=== PATIENT | female | born 1970 | race Caucasian/White ===

== ENCOUNTER → 2017-07-18 10:29 | Outpatient (CLI) | payer OTHER, SELFPAY ==
--- NOTE | 2017-07-18 10:32 | US_ITS ---
STUDY: ULTRASOUND OF THE FEMALE PELVIS - COMPLETE REASON FOR EXAM: Female, 46 years old. History of septated left ovarian cyst. LMP: 2012. TECHNIQUE: Transabdominal and Transvaginal TECHNICAL QUALITY: Adequate. COMPARISON: Comparison is made with prior ultrasound dated March 01, [address] scan dated March 04, 2017. FINDINGS: The uterus is anteverted and is in a midline position. The uterus measures 8.0 cm x 5.4 cm x 3.9 cm. There are nabothian cysts of the cervix. The endometrium measures 2.0 mm in thickness, and is hyperechoic. There is no demonstrated endometrial mass. The uterus is of heterogeneous echotexture with fibroid change although no focal fibroid is seen. I.U.D. - The patient does not have an I.U.D. The right ovary is non-visualized. The left ovary is visualized. The left ovary measures 2.6 cm x 2.1 cm x 3.3 cm. There is no left ovarian cyst or ovarian mass. There is no visualized left adnexal mass or complex lesion. There is normal arterial and normal venous vascularity. There is no fluid in the cul-de-sac. The urinary bladder is empty. US/Transvaginal Non- IMPRESSION: Fibroid change of the uterus. The left ovarian cyst has resorbed. Electronically Signed: Enzo Espinosa MD at 14:55 EST Tel [phone], Service support ,
== END ==
PROVIDERS: Family Provider Internal Medicine; PCP Internal Medicine; Visit Provider Obstetrics & Gynecology
DX: R10.814 Left lower quadrant abdominal tenderness (principal)
CPT/HCPCS: 76830; 93976

== ENCOUNTER → 2017-08-08 07:03 | Outpatient (CLI) | payer OTHER, SELFPAY ==
--- NOTE | 2017-08-08 07:06 | CT_ITS ---
STUDY: CT CHEST WITHOUT CONTRAST REASON FOR EXAM: Female, 46 years old. Follow-up for lung nodule. History of breast cancer. RADIATION DOSAGE (If Supplied By Facility): CTDIvol = ( 16.47 ) mGy, DLP = ( 543.21 ) mGycm TECHNIQUE: Transaxial imaging was performed without the administration of intravenous contrast material. Multiplanar coronal and sagittal images were reformatted. Individualized dose optimization techniques were used for this CT. COMPARISON: Comparison is made with prior study dated March 16, 2017. FINDINGS: There is a 5 mm noncalcified nodule in the posterior medial segment of the left lower lobe as seen on axial image #70. This appears slightly smaller. No new nodular density is seen. There is no demonstrated pleural abnormality. Normal heart and pericardium. Normal mediastinum. Normal hilar regions. Normal unenhanced pulmonary arteries. Normal aorta arch and descending thoracic aorta. Normal osseous structures. Fatty infiltration of the liver. CT/Chest without Contrast IMPRESSION: 5 mm noncalcified nodule in the posteromedial segment of the left lower lobe. Electronically Signed: Enzo Espinosa MD at 11:17 EDT Tel [phone], Service support ,
== END ==
PROVIDERS: Family Provider Internal Medicine; PCP Internal Medicine; Visit Provider Internal Medicine Medical Oncology
DX: C50.911 Malignant neoplasm of unspecified site of right female breast (principal); R91.1 Solitary pulmonary nodule
CPT/HCPCS: 71250

== ENCOUNTER → 2017-09-14 07:47 | Outpatient (CLI) | payer OTHER, SELFPAY ==
--- NOTE | 2017-09-14 07:49 | NM_ITS ---
CLINICAL: 47-year-old female with reported history of carcinoma of the breast with current complaint of left hip pain. WHOLE BODY 99m Tc MDP RADIONUCLIDE BONE SCINTIGRAPHY COMPARISON: None available FINDINGS: Following the intravenous administration of 25.0 mCi of 99m Tc MDP, whole body bone images reveal: 1. Increased radiopharmaceutical concentration is identified in the posterior midline sacrum, bilateral hands, knees bilaterally, right and left ankles, the left midfoot, right-left forefoot. 2. The remaining skeletal structures are scintigraphically unremarkable with normal-appearing renal images and urinary bladder activity identified. An increase in uptake is demonstrated in the left maxilla. NM/Bone Scan Whole Body IMPRESSION: 1. The increase in radiopharmaceutical concentration identified in the sacrum, right and left hands, both knee articulations, ankles bilaterally, the left mid foot, right-left forefoot is consistent with the presence of degenerative arthritis. 2. There is no definitive typical scintigraphic evidence of skeletal metastatic disease on the current examination meticulous attention paid to the left hip articulation. Electronically Signed: Emilio Melendrez DO at 10:21 EDT Tel , Service support ,
== END ==
PROVIDERS: Family Provider Internal Medicine; PCP Internal Medicine; Visit Provider Internal Medicine Medical Oncology
DX: M25.552 Pain in left hip (principal); Z85.3 Personal history of malignant neoplasm of breast
CPT/HCPCS: 78306

== ENCOUNTER → 2017-09-23 13:08 | Outpatient (CLI) | payer OTHER, SELFPAY ==
--- NOTE | 2017-09-23 13:26 | BI_ITS ---
MAMMOGRAPHY - BILATERAL DIAGNOSTIC REASON FOR EXAM: Female, 47 years old. Personal history of breast cancer with previous right lumpectomy and radiation therapy PERTINENT HISTORY: Non-contributory. TECHNIQUE: Digital examination. Mediolateral oblique (MLO) and craniocaudad (CC) views of both breasts were obtained, along with 3D tomosynthesis. CAD: CAD was performed on this study. COMPARISON: 08/24/2016 FINDINGS: Breast Composition: There are scattered areas of fibroglandular density. Stable well-defined 1 cm noncalcified nodule in the central left breast. Stable architectural distortion in the right breast from previous surgery. No new suspicious findings. No other significant abnormalities are identified. BI/DIAG MAMM W/CAD, BILAT IMPRESSION: Stable bilateral diagnostic mammogram. ASSESSMENT CATEGORY: BIRADS Category 2: Benign. A letter regarding these results will be sent to the patient by the facility within 30 days. FOLLOW UP RECOMMENDATION: Yearly follow up mammogram recommended. (A) Approximately 10% of breast cancers are not detected by mammography. A normal mammogram should not delay biopsy of a clinically suspicious abnormality. Electronically Signed: Luis Irene MD at 8:17 EDT , Service support ,
== END ==
PROVIDERS: Family Provider Internal Medicine; PCP Internal Medicine
DX: C50.511 Malignant neoplasm of lower-outer quadrant of right female breast (principal)
CPT/HCPCS: 77062; 77066; G0279

== ENCOUNTER → 2018-01-16 07:57 | Outpatient (CLI) | payer OTHER, SELFPAY ==
[2018-01-16 08:45] LABS: Absolute Lymphocyte Count 1.87 X10^3/ul (0.83-4.51); Absolute Neutrophil Count 3.3 X10^3/uL (2.0-7.7); Basophil# 0.04 X10^3/uL; Basophil% 0.7 % (0-1); Eosinophils% 1.8 % (0-5); Hematocrit 40.5 % (37-47); Hemoglobin 13.4 g/dl (12.0-15.0); Lymphocyte # 1.87 X10^3/ul (4.0); Lymphocyte % 33.3 % (19-41); Mean Corp Hgb Conc 33.1 g/gl (32-36); Mean Corpuscular Hgb 31.3 pg (27.0-32.0); Mean Corpuscular Volume 94.6 fL (81-99); Mean Platelet Vol. 9.8 fl (6.2-12.0); Monocyte# 0.33 X10^3/uL; Monocyte% 5.9 % (0-10); Neutrophil # 3.28 X10^3/uL (2.7-7.7); Neutrophil % 58.3 % (47-70); Platelet Count 227 K/mm3 (150-450); RBC Distribution Width CV 11.9 % (11.6-14.6); Red Blood Count 4.28 M/mm3 (4.2-5.4); White Blood Count 5.6 K/mm3 (4.4-11.0)
[2018-01-16 08:50] LABS: POSITIVE COUNT NO; POSITIVE DIFFERENTIAL NO; POSITIVE MORPHOLOGY NO
[2018-01-16 09:15] LABS: Hemoglobin A1c 5.3 % (4.2-6.3)
[2018-01-16 09:28] LABS: BUN 21 mg/dL (7-18); Creatinine, Serum 0.74 mg/dL (0.55-1.02); EST Glomerular Filtration Rate 90 mL/min (>60); Glucose 95 mg/dL (74-106)
[2018-01-16 09:29] LABS: AST(SGOT) 22 U/L (15-37); Alanine Aminotransfer ALT/SGPT 42 U/L (13-56); Albumin, Serum 3.5 g/dL (3.2-5.0); Alkaline Phosphatase 48 U/L (45-117); Anion Gap 14 (5-15); BUN/Creat Ratio 28.5 RATIO (10-20); Calcium,Total 9.1 mg/dL (8.5-10.1); Chloride 105 mmol/L (98-107); Cholesterol 167 mg/dL (200); Est Glom Filt Rate - Afr Amer 109 mL/min (>60); Globulin 3.4 g/dL (2.2-4.2); High Density Lipoprotein 34 mg/dL; Potassium 4.2 mmol/L (3.5-5.1); Protein, Total 6.9 g/dL (6.4-8.2); Sodium Level 142 mmol/L (136-145); Thyroid Stim Hormone (TSH) 4.05 uIU/mL (0.358-3.74); Triglycerides 143 mg/dL; Very Low Density Lipoprotein 29 mg/dL (5-40)
== END ==
PROVIDERS: Family Provider Internal Medicine; PCP Internal Medicine; Visit Provider Obstetrics & Gynecology
DX: N83.202 Unspecified ovarian cyst, left side (principal); E78.5 Hyperlipidemia, unspecified; E55.9 Vitamin D deficiency, unspecified; R73.9 Hyperglycemia, unspecified; R53.81 Other malaise
CPT/HCPCS: 36415; 76830; 76856; 80053; 80061; 82306; 83036; 84443; 85025

== ENCOUNTER → 2018-02-13 06:59 | Outpatient (CLI) | payer OTHER, SELFPAY ==
--- NOTE | 2018-02-13 07:00 | CT_ITS ---
STUDY: CT CHEST WITHOUT CONTRAST REASON FOR EXAM: Female, 47 years old. History of lung nodule. The patient has a history of breast cancer and radiation therapy. RADIATION DOSAGE (If Supplied By Facility): CTDIvol = ( 16.81 ) mGy, DLP = ( 495.67 ) mGycm TECHNIQUE: Transaxial imaging was performed without the administration of intravenous contrast material. Multiplanar coronal and sagittal images were reformatted. Individualized dose optimization techniques were used for this CT. COMPARISON: Comparison is made with prior examination dated August 08, 2017. FINDINGS: 24.1 mm noncalcified nodule in the posterior aspect of the left lower lobe. This has decreased slightly as compared to prior examination. This is seen on axial image #69. No new abnormality is seen. There is no demonstrated pleural abnormality. Normal heart and pericardium. Normal mediastinum. Normal hilar regions. Normal unenhanced pulmonary arteries. Normal aorta arch and descending thoracic aorta. Normal osseous structures. Diffuse fatty infiltration of the liver. CT/Chest without Contrast IMPRESSION: Slightly decreased size of the pulmonary nodule in the posterior medial segment of the left lower lobe. Diffuse fatty infiltration of the liver. Electronically Signed: Enzo Espinosa MD at 13:15 EDT Tel [phone], Service support ,
== END ==
PROVIDERS: Family Provider Internal Medicine; PCP Internal Medicine; Visit Provider Internal Medicine Medical Oncology
DX: R91.1 Solitary pulmonary nodule (principal); Z85.3 Personal history of malignant neoplasm of breast
CPT/HCPCS: 71250

== ENCOUNTER → 2018-03-22 15:46 | Outpatient (CLI) | payer OTHER, SELFPAY ==
[2018-03-25 13:31] LABS: HPV Reflexed? NOT INDICATED
== END ==
PROVIDERS: Visit Provider Obstetrics & Gynecology
DX: Z12.4 Encounter for screening for malignant neoplasm of cervix (principal)
CPT/HCPCS: 88175; G0145

== ENCOUNTER → 2018-07-25 15:35 | Outpatient (CLI) | payer OTHER, SELFPAY ==
--- NOTE | 2018-07-25 15:38 | US_ITS ---
STUDY: ULTRASOUND OF THE FEMALE PELVIS - COMPLETE REASON FOR EXAM: Female, 47 years old. Patient on tamoxifen. Ovarian cysts for follow-up. TECHNIQUE: Transvaginal. TECHNICAL QUALITY: Adequate. COMPARISON: January 16, 2018. July 18, 2017. FINDINGS: The uterus is anteverted and is in a midline position. The uterus measures 9.8 x 5.8 x 3.6 cm. Normal uterine cervix. The endometrium measures 4 mm in thickness, and is hyperechoic. There is no demonstrated endometrial mass. Uterine fibroid measuring 1.2 x 0.9 x 0.8 cm. I.U.D. - The patient does not have an I.U.D. The right ovary is visualized. The right ovary measures 1.8 x 1.6 x 1.0 cm. There is no right ovarian cyst or ovarian mass. There is no visualized right adnexal mass or complex lesion. There is normal arterial and normal venous vascularity. The left ovary is visualized. The left ovary measures 1.8 x 1.6 x 1.2 cm. Simple left ovarian cyst measuring 0.8 x 0.6 x 0.7 cm There is no visualized left adnexal mass or complex lesion. There is normal arterial and normal venous vascularity. There is no fluid in the cul-de-sac. The pre void volume of the bladder was 220 ml. Polycystic ovary disease: No. US/Pelvic (Non ) IMPRESSION: 0.8 cm simple left ovarian cyst compatible with a dominant follicle. 1.2 cm uterine fibroid, not visualized previously. Electronically Signed: Navin Jacome MD at 2:32 EST , Service support ,
--- NOTE | 2018-07-25 16:11 | US_ITS ---
STUDY: ULTRASOUND OF THE FEMALE PELVIS - COMPLETE REASON FOR EXAM: Female, 47 years old. Patient on tamoxifen. Ovarian cysts for follow-up. TECHNIQUE: Transvaginal. TECHNICAL QUALITY: Adequate. COMPARISON: January 16, 2018. July 18, 2017. FINDINGS: The uterus is anteverted and is in a midline position. The uterus measures 9.8 x 5.8 x 3.6 cm. Normal uterine cervix. The endometrium measures 4 mm in thickness, and is hyperechoic. There is no demonstrated endometrial mass. Uterine fibroid measuring 1.2 x 0.9 x 0.8 cm. I.U.D. - The patient does not have an I.U.D. The right ovary is visualized. The right ovary measures 1.8 x 1.6 x 1.0 cm. There is no right ovarian cyst or ovarian mass. There is no visualized right adnexal mass or complex lesion. There is normal arterial and normal venous vascularity. The left ovary is visualized. The left ovary measures 1.8 x 1.6 x 1.2 cm. Simple left ovarian cyst measuring 0.8 x 0.6 x 0.7 cm There is no visualized left adnexal mass or complex lesion. There is normal arterial and normal venous vascularity. There is no fluid in the cul-de-sac. The pre void volume of the bladder was 220 ml. Polycystic ovary disease: No. US/Transvaginal Non- IMPRESSION: 0.8 cm simple left ovarian cyst compatible with a dominant follicle. 1.2 cm uterine fibroid, not visualized previously. Electronically Signed: Navin Jacome MD at 2:32 EST , Service support ,
== END ==
PROVIDERS: Family Provider Internal Medicine; PCP Internal Medicine; Referring Provider Obstetrics & Gynecology; Visit Provider Obstetrics & Gynecology
DX: N83.209 Unspecified ovarian cyst, unspecified side (principal); R10.814 Left lower quadrant abdominal tenderness; Z79.899 Other long term (current) drug therapy
CPT/HCPCS: 76830; 76856; 93976

== ENCOUNTER → 2018-08-14 06:43 | Outpatient (CLI) | payer OTHER, SELFPAY ==
[2018-02-16 14:13] VITALS: BMI 34.0
--- NOTE | 2018-08-14 06:46 | CT_ITS ---
STUDY: CT CHEST WITH CONTRAST REASON FOR EXAM: Female, 47 years old. Lung nodule follow-up RADIATION DOSAGE (If Supplied By Facility): CTDIvol = ( 16.27 ) mGy, DLP = ( 521.51 ) mGycm TECHNIQUE: Transaxial imaging was performed following intravenous administration of Isovue 300 100CC IV. Individualized dose optimization techniques were used for this CT. COMPARISON: 02/13/2018 FINDINGS: Stable appearance of a 5 mm noncalcified nodule in the posterior left lower lobe. It is essentially unchanged compared to 03/04/2017. Another six-month follow-up is recommended to assure stability, if it is stable at that time no further follow-up would be needed. The lungs are otherwise normal. There is no demonstrated pleural abnormality. Normal heart and pericardium. Normal mediastinum. Normal hilar regions. Normal enhanced pulmonary arteries. Normal aorta arch and descending thoracic aorta. Normal osseous structures. Limited cuts through the upper abdomen show diffuse fatty infiltration of liver. CT/Chest WITH Contrast IMPRESSION: Stable appearance of a 5 mm noncalcified nodule in the left lower lobe best seen on axial image 63. Another six-month follow-up is recommended to assure stability. If it is unchanged at that time, no further serial surveillance would be needed No superimposed acute pulmonary process, no organized infiltrate or effusion Diffuse fatty infiltration of the liver Electronically Signed: Luis Irene MD at 19:29 EDT , Service support ,
[2018-08-14 07:05] LABS: CREATININE FINGERSTICK 0.8 mg/dL (0.55-1.02); EGFR FINGERSTICK > 60.0000 mL/min (>60)
== END ==
PROVIDERS: Family Provider Internal Medicine; PCP Internal Medicine; Referring Provider Internal Medicine Medical Oncology; Visit Provider Internal Medicine Medical Oncology
DX: R91.1 Solitary pulmonary nodule (principal); Z85.3 Personal history of malignant neoplasm of breast
CPT/HCPCS: 71260; Q9967; A4216

== ENCOUNTER → 2018-09-25 | Outpatient (CLI) | payer OTHER, SELFPAY ==
[2018-08-16 13:23] VITALS: BMI 34.7
--- NOTE | 2018-09-25 08:35 | BI_ITS ---
MAMMOGRAPHY - BILATERAL SCREENING REASON FOR EXAM: Female, 48 years old. Routine annual screening examination. PERTINENT HISTORY: Personal history of breast cancer. Prior right lumpectomy with radiation and chemotherapy. TECHNIQUE: Digital bilateral breast michael (3D mammographic acquisition) in the CC and MLO projections. 2-D mediolateral oblique (MLO) and craniocaudad (CC) views of both breasts were obtained. CAD: Full Field Digital Mammography with Computer Added Detection was performed. COMPARISON: Comparison is made with prior examination dated August 24, 2016 and September 23, 2017. FINDINGS: Breast Composition: There are scattered areas of fibroglandular density. The patient is status post lumpectomy in the deep mid lateral portion of the right breast in keeping with prior surgical changes. There is a persistent 9.3 mm x 1.3 cm slightly irregular nodule in the upper outer aspect of the left breast. A repeat ultrasound of the nodular density in the left breast is recommended for further evaluation. No other significant abnormalities are identified. There has been no significant change since the prior study. BI/SCREEN MAMM (CAD) W/MICHAEL BILAT IMPRESSION: Status post right lumpectomy with postoperative changes in the right breast as described. Stable nodular density in the left breast as described. A repeat sonogram is recommended. ASSESSMENT CATEGORY: BIRADS Category 0: Incomplete. Need additional imaging evaluation. A letter regarding these results will be sent to the patient by the facility within 30 days. Approximately 10% of breast cancers are not detected by mammography. A normal mammogram should not delay biopsy of a clinically suspicious abnormality. [id number] Electronically Signed: Enzo Espinosa, at 13:05 EDT , Service support ,
--- NOTE | 2018-09-25 13:38 | US_ITS ---
STUDY: ULTRASOUND BREAST - LEFT REASON FOR EXAM: Female, 48 years old. Abnormal screening mammogram. TECHNIQUE: Axial and longitudinal images of the LEFT breast were performed with a high resolution ultrasound transducer. COMPARISON: Comparison is made with prior mammogram done earlier in the day as well as prior ultrasound the left breast dated August 25, 2016. FINDINGS: LEFT Breast: Stable 7 mm x 8 mm x 4 mm hypoechoic nodule at the 2:00 position of the breast at 5 cm from the nipple. This is unchanged. This has the appearance of a lymph node. US/Breast Limited Unilateral IMPRESSION: Stable examination. Routine annual mammographic follow-up is recommended. ASSESSMENT CATEGORY: BIRADS Category 2: Benign. A letter regarding these results will be sent to the patient by the facility within 30 days. Electronically Signed: Enzo Espinosa, at 14:27 EDT , Service support ,
== END | disposition home or self-care (01) ==
PROVIDERS: Family Provider Internal Medicine; PCP Internal Medicine; Referring Provider Internal Medicine Medical Oncology; Visit Provider Internal Medicine Medical Oncology
DX: Z12.31 Encounter for screening mammogram for malignant neoplasm of breast (principal); Z85.3 Personal history of malignant neoplasm of breast
CPT/HCPCS: 76642; 77063; 77067

== ENCOUNTER → 2019-02-19 | Outpatient (CLI) | payer OTHER, SELFPAY ==
[2018-08-16 13:23] VITALS: BMI 34.7
--- NOTE | 2019-02-19 07:20 | CT_ITS ---
STUDY: CT CHEST WITH CONTRAST REASON FOR EXAM: Female, 48 years old. History of breast cancer. Follow-up for noncalcified nodule in the left lower lobe. RADIATION DOSAGE (If Supplied By Facility): CTDIvol = ( 13.99 ) mGy, DLP = ( 458.19 ) mGycm TECHNIQUE: Transaxial imaging was performed following intravenous administration of 100CC IV Isovue 250. Multiplanar coronal and sagittal images were reformatted. Individualized dose optimization techniques were used for this CT. COMPARISON: None. FINDINGS: Stable fat-containing bilateral axillary lymph nodes. There is a 5 mm noncalcified nodule in the posterior aspect of the right lower lobe as seen on axial image #61. This is essentially unchanged. Annual follow-up is recommended. There is no demonstrated pleural abnormality. Normal heart and pericardium. Normal mediastinum. Normal hilar regions. Normal enhanced pulmonary arteries. Normal aorta arch and descending thoracic aorta. There are mild degenerative changes of the thoracic spine. Diffuse fatty infiltration of the liver. Small hiatal hernia. CT/Chest WITH Contrast IMPRESSION: Stable examination. Annual follow-up for the left basilar 5 mm nodule is recommended. Diffuse fatty infiltration of the liver. Electronically Signed: Enzo Espinosa, at 12:59 EDT , Service support ,
== END | disposition home or self-care (01) ==
LOC: CT 07:19
PROVIDERS: Family Provider Internal Medicine; PCP Internal Medicine; Referring Provider Internal Medicine Medical Oncology; Visit Provider Internal Medicine Medical Oncology
DX: R91.1 Solitary pulmonary nodule (principal); Z85.3 Personal history of malignant neoplasm of breast
CPT/HCPCS: 71260; Q9967

== ENCOUNTER 2019-08-09 05:59 | Day surgery (SDC) | payer OTHER, SELFPAY ==
[2019-07-10 11:28] VITALS: BMI 32.3
--- NOTE | 2019-08-09 00:03 | HP.PCM_ITS ---
History and Physical Date of Admission: 08/09/19 HISTORY OF PRESENT ILLNESS 48 year old woman presents for evaluation for TBSE. She has concerns about a lesion on her left upper back that has increased in size over the last several months and has developed irregular borders. She denies fever. She denies trauma. She denies recent infection. She denies bleeding. She presents at this time for further evaluation and treatment. PAST MEDICAL HISTORY Breast cancer Osteoarthritis Tubal PAST SURGICAL HISTORY dilation and curettage hysteroscopy endometrial ablation lumpectomy sinus surgery tubal ligation ALLERGIES No Known Allergies MEDICATIONS Multivit,Calc,Mins/Iron/Folic [Women's Daily Formula Caplet] Calcium Carbonate/Vitamin D3 Tamoxifen Citrate [Nolvadex] FAMILY HISTORY Mother - CVA (cerebral vascular accident), Kidney disease, Hypertension, Clotting disorder, Skin cancer, High cholesterol Father - Skin cancer, Arthritis, High cholesterol, Hypertension Brother - Diabetes, Kidney disease SOCIAL HISTORY Smoking Status: Never smoker alcohol intake: current substance use type: does not use REVIEW OF SYSTEMS General - Denies fever, fatigue, and weight loss. Eyes - Denies cataracts and glaucoma. ENT - Denies nasal congestion and sore throat. Has history of breast cancer. Endocrine - Denies excessive thirst and urination. Skin - Has family history of skin cancer. Has enlarging lesion left upper back. Musculoskeletal - Has joint pain, joint stiffness, and arthritis. Denies weakness of muscles and joints and back pain. Neuro - Denies headaches. Cardiovascular - Denies chest pain, fatigue, and shortness of breath with exertion. Psych - Denies anxiety and depression. Respiratory - Denies chronic cough and shortness of breath. Gastrointestinal - Denies nausea, vomiting, diarrhea, and constipation. Hematologic - Denies abnormal bruising and bleeding. Genitourinary - Denies hematuria and urinary frequency. PHYSICAL EXAMINATION General - Alert and Oriented HEENT - PERRL. EOMI. Throat is clear. No suspicious lesions noted. Neck - Supple and nontender. No cervical adenopathy. No suspicious lesions noted. Lungs - Clear to auscultation. Heart - Regular rate and rhythm. Abdomen - Soft and nondistended. Extremities - FROM. No axillary adenopathy. Radial pulses are palpable. Back - On the left upper back is a lesion that measures 9 mm. Slight pigmentation. Has irregular borders. Slightly raised in configuration. No ulceration. Lesion is nontender. Neuro - CN II-XII grossly intact. Psych - Normal mood and affect. ASSESSMENT 1. 9 mm pigmented lesion left upper back. 2. Family history of skin cancer. PLAN Recommend excision of this pigmented lesion left upper back and send it to Pathology for analysis to rule out carcinoma. If carcinoma is present, then further excision will be done with possible skin flap reconstruction. Surgery will be done under local anesthesia and IV sedation on an outpatient basis. Patient was informed of the risks and complications of the procedure including alternatives to surgery. These were discussed with the patient personally. Patient voices understanding and wishes to proceed. Some of the risks and complications were included in a form from the [employer] [employer].
[2019-08-09 06:46] VITALS: BP 118/80; PULSE 89; RESP 14; TEMP 36.6; O2SAT 98; BMI 33.8
[2019-08-09] MEDS: Lactated Ringers 1,000 ML 100 ML IV (07:17)
--- NOTE | 2019-08-09 07:30 | LES_PTH ---
PATIENT: SARKIS ARREGAA LOC: [facility] [place] U#:[id number] AGE/SX: 48/F ROOM: RE08/09/[address]: Dr. Mathew Ferguson MD : 1970 BED: DIS: 08/09/2019 SPEC #: [id number] RECD: 08/09/19 10:23 STATUS: SILAS MASOOD #: [id number] ZAMZAM: 08/09/19 07:[address]: Mathew Ferguson DEPT: SURGICAL PATHOLOGY RECD BY: Rigo Pichardo ENTERED: 08/09/19 10:31 SP TYPE: Lesion OTHR DR: Dr. Rich Morrison MD Tissues: Skin of back, NOS Procedures: Surgery Specimen Level IV HEADER OPERATION: Excision pigmented lesion upper back PRE-OP DIAGNOSIS: 9 mm pigmented lesion left upper back TISSUE SUBMITTED: Pigmented lesion upper back, suture at 12 o'clock MICROSCOPIC DIAGNOSIS Lesion upper back, excision: Pigmented seborrheic keratosis. AM:keli 08/10/19 COMMENT Case has been reviewed in consultation with Dr. Fischer who concurs with the above diagnosis. IDC:SJ MICROSCOPIC DESCRIPTION Slides are reviewed. GROSS DESCRIPTION Received in fixative is one container labeled with the patient's name and designated skin of upper back. The specimen consists of an ellipse of light patel excised skin measuring 2.8 x 1.1 cm and a depth of excision measuring 0.6 cm. The cutaneous surface displays an irregularly elevated light patel lesion measuring 1 cm in greatest dimension. One tip of the specimen contains a suture. This tip and corresponding half is inked in yellow ink. The opposite half of the specimen is inked in black ink. The specimen is serially sectioned along its narrow access and totally submitted in two cassettes. / AM:keli 08/09/19 TC:5 CPT: 19899
[2019-08-09] MEDS: Cefazolin 2 GM in 0.9% Normal Saline 100 ML IV (07:58)
[2019-08-09] MEDS: Mupirocin Ointment 22gm Tube 1 APPLIC (08:21)
--- NOTE | 2019-08-09 08:32 | OP.PCM_ITS ---
Report of Operation Date of Procedure: 08/09/19 Pre-Operative Diagnosis: 1. 9 mm pigmented lesion left upper back. 2. Family history of skin cancer. Post-Operative Diagnosis: Same. Surgery/Procedure Performed:: Excision 9 mm pigmented lesion left upper back with 3 cm layered closure. Description of Surgical Findings:: 48 year old woman presents for evaluation for TBSE. She has concerns about a lesion on her left upper back that has increased in size over the last several months and has developed irregular borders. She denies fever. She denies trauma. She denies recent infection. She denies bleeding. Patient was informed of the risks and complications of the procedure including alternatives to surgery. These were discussed with the patient personally. Patient voices understanding and wishes to proceed. Some of the risks and complications were included in a form from the [employer]. math and physics instructor: None Type of Anesthesia:: Local MAC - xylocaine with epinephrine and IV sedation. Specimen's removed: Pigmented lesion left upper back to Pathology. Drains: None. Estimated Blood Loss (mL): 5 ml. Description of Procedure: Patient was taken to OR in supine position and was given IV sedation. She was placed in the prone position. The left upper back was prepped and draped in the usual fashion. SCD's were placed for DVT prophylaxis. Perioperative antibiotics were given intravenously. The lesion left upper back was infiltrated with xylocaine and epinephrine. After waiting 5 minutes for the anesthetic to take effect, I excised the lesion in an oblique elliptical way down into the subcutaneous tissue. I excised the lesion with a 1 mm margin in all directions thus making it a 1.1 cm lesion and a 3 cm layered closure. A suture was marked at 12 oclock position for pathology orientation. The lesion was sent to Pathology for analysis to rule out carcinoma. Hemostasis was obtained with electrocautery. The wound was closed primarily in a layered fashion with 4-0 Prolene interrupted sutures for deep dermis and subcutaneous tissue. The skin was approximated with 4-0 Prolene simple interrupted sutures. Antibiotic ointment was applied to the suture line followed by a 2x2 gauze and an Op-Site dressing. Patient tolerated the procedure well and was sent to PACU in satisfactory condition. Patient will be sent home on antibiotics and pain medication. She will keep her head elevated and be on a lifting restriction during the initial postoperative period. Patient will followup in a week for a wound check and for discussion of the pathology report and for removal of the sutures. Grafts/Implants Used: None. - Complications None. - Admit VTE Documentation VTE Present on Admission: No VTE Mechan Device Prophylaxis: SCD's VTE Pharm Prophylaxis ordered?: No Surgery Charges CPT - 09241 ICD-10 - D49.2, Z80.8 28024 D49.2, Z80.8
[2019-08-09 08:35] VITALS: BP 118/80; BP 122/64; PULSE 97; RESP 16; TEMP 36.5; O2SAT 98
[2019-08-09 08:40] VITALS: BP 111/78; BP 118/80; PULSE 71; RESP 16; O2SAT 98
--- NOTE | 2019-08-09 08:43 | PCM.DC ---
You will use the following diet at home:: No restrictions Discharge Activity: May not drive while taking narcotic pain medications., May Shower - in two days., - - keep head elevated. no heavy lifting. Return to work on:: 08/20/19 - tentative May shower in (days): 2 May resume sexual activity in: No Restrictions Weight Bearing Status: Weight bearing as tolerated Lifting Restrictions: 20 lbs. Keep extremity elevated above heart level: - - elevate head. Call your doctor if your incision/area has: Continuous Slow Oozing, Sudden Increased Bleeding, Increased Pain/ Swelling, Increased Redness, Foul Smelling Discharge, Swelling at the incision site Call your doctor if you observe: Fever of 101 or Higher, Coldness, Increased Pain, Shortness of breath, Chest pain, Calf discomfort, Uncontrolled pain Suture Line Care: - - after operative dressing removed in two days, apply antibiotic ointment to suture line daily. Remove Dressing in (days):: 2 Cleanse incision/area with: - - may get incision wet in the shower in two days. Allergies/Adverse Reactions: Allergies No Known Allergies Allergy (Verified 08/07/19 11:53) Medications to take at Discharge Multivit,Calc,Mins/Iron/Folic [Women's Daily Formula Caplet] 1 each PO DAILY 12/31/15 Calcium Carbonate/Vitamin D3 [Calcium 600-Vit D3 400 Tablet] 1 each PO BID #60 tablet 09/14/16 Tamoxifen Citrate [Nolvadex] 20 mg PO DAILY 90 Days #90 tab 07/02/19 Cefadroxil [Duricef] 500 mg PO BID #8 cap 08/09/19 Oxycodone HCl/Acetaminophen [Percocet 5/325] 1 tablet PO Q6H PRN PRN 5 Days #20 tablet 08/09/19 The following prescriptions were given: Cefadroxil [Duricef] 500 mg PO BID #8 cap Transmission Status: Pending to [facility]/pharmacy #[id number] Oxycodone HCl/Acetaminophen [Percocet 5/325] 1 tablet PO Q6H PRN PRN 5 Days #20 tablet PRN Reason: Pain Score 4-5/10 Transmission Status: Received by [facility]/pharmacy #[id number] Primary Care Physician: Rich Morrison [Primary Care Provider] - Test Results: Test results from this visit will be discussed in further detail at your follow-up appointment, if applicable. Please Follow Up With: Mathew Ferguson MD When: one week. call [phone] for appt. Proposed Discharge Date: 08/09/19
[2019-08-09 08:45] VITALS: BP 107/79; BP 118/80; PULSE 81; RESP 16; O2SAT 95
[2019-08-09 08:50] VITALS: BP 109/72; BP 118/80; PULSE 80; RESP 16; TEMP 36.4; O2SAT 98
[2019-08-09 09:23] VITALS: BP 118/80
== END 2019-08-09 09:28 | disposition home or self-care (01) ==
LOC: SDC 05:59 → AC 06:00
PROVIDERS: PCP Internal Medicine; Referring Provider Surgery; Visit Provider Surgery
PROC: (CPT 11401; principal; 2019-08-09 07:20)
DX: L82.1 Other seborrheic keratosis (principal); M19.90 Unspecified osteoarthritis, unspecified site; Z85.3 Personal history of malignant neoplasm of breast
CPT/HCPCS: 11401; 12032; 88305; J7120

== ENCOUNTER → 2019-10-08 | Outpatient (CLI) | payer OTHER, SELFPAY ==
[2019-08-17 09:36] VITALS: BMI 33.8
--- NOTE | 2019-10-08 14:59 | BI_ITS ---
MAMMOGRAPHY - BILATERAL SCREENING REASON FOR EXAM: Female, 49 years old. Routine annual screening examination. PERTINENT HISTORY: Personal history of breast cancer. History of prior right lumpectomy with radiation and chemotherapy. TECHNIQUE: Digital bilateral breast michael (3D mammographic acquisition) in the CC and MLO projections. 2-D mediolateral oblique (MLO) and craniocaudad (CC) views of both breasts were obtained. CAD: Full Field Digital Mammography with Computer Added Detection was performed. COMPARISON: Comparison is made with prior examination dated September 25, 2018 and September 24, 2007. FINDINGS: Breast Composition: There are scattered areas of fibroglandular density. The patient is status post right lumpectomy in the deep mid lateral portion of the right breast. Mild residual postoperative changes are seen. There is a 1.1 cm x 0.8 cm nodular density in the upper outer aspect of the left breast. This is unchanged. No clustered microcalcification is seen. No other significant abnormalities are identified. There has been no significant change since the prior study. BI/SCREEN MAMM (CAD) W/MICHAEL BILAT IMPRESSION: Stable bilateral screening mammogram. Yearly follow-up mammogram recommended. (A) ASSESSMENT CATEGORY: BIRADS Category 2: Benign. A letter regarding these results will be sent to the patient by the facility within 30 days. Approximately 10% of breast cancers are not detected by mammography. A normal mammogram should not delay biopsy of a clinically suspicious abnormality. [id number] Electronically Signed: Enzo Espinosa, at 8:16 EDT , Service support ,
== END | disposition home or self-care (01) ==
LOC: OPBI 14:59
PROVIDERS: PCP Internal Medicine; Referring Provider Internal Medicine Medical Oncology; Visit Provider Internal Medicine Medical Oncology
DX: Z12.31 Encounter for screening mammogram for malignant neoplasm of breast (principal); C50.919 Malignant neoplasm of unspecified site of unspecified female breast
CPT/HCPCS: 77063; 77067

== ENCOUNTER → 2020-03-05 | Outpatient (CLI) | payer OTHER, SELFPAY ==
[2019-10-11 14:57] VITALS: BMI 33.7
--- NOTE | 2020-03-05 06:51 | CT_ITS ---
STUDY: CT CHEST WITH CONTRAST REASON FOR EXAM: Female, 49 years old. F/U LUNG NODULE. HISTORY OF RIGHT BREAST CANCER 2016 WITH LUMPECTOMY,CHEMO AND RADIATION RADIATION DOSAGE (If Supplied By Facility): CTDIvol = ( 11.22 ) mGy, DLP = ( 385.54 ) mGycm TECHNIQUE: Transaxial imaging was performed following intravenous administration of IV 100mL Isovue-370. Multiplanar coronal and sagittal images were reformatted. Individualized dose optimization techniques were used for this CT. COMPARISON: 02/19/2019, 08/08/2017 FINDINGS: Similar operative changes of the deep right breast. 5 mm smoothly marginated noncalcified nodule in the left lower lobe on image 65 is stable since 08/08/2017. There is no demonstrated pleural abnormality. Normal heart and pericardium. Normal mediastinum. Normal hilar regions. Normal enhanced pulmonary arteries. Normal aorta arch and descending thoracic aorta. There are multi-level degenerative changes of the thoracic spine. Diminished density throughout the liver compatible with hepatic steatosis. CT/Chest WITH Contrast IMPRESSION: 1. 5 mm nodule in the left lower lobe has been stable for more than 2 years, considered benign. No specific imaging follow-up recommendations according to [employer] standards. Electronically Signed: Torin Pineda MD ([place]) at 9:57 EDT , Service support ,
[2020-03-05 07:01] LABS: CREATININE FINGERSTICK 0.9 mg/dL (0.55-1.02)
== END | disposition home or self-care (01) ==
LOC: CT 06:51
PROVIDERS: PCP Internal Medicine; Referring Provider Internal Medicine Medical Oncology; Visit Provider Internal Medicine Medical Oncology
DX: R91.1 Solitary pulmonary nodule (principal); C50.911 Malignant neoplasm of unspecified site of right female breast
CPT/HCPCS: 71260; Q9967

== ENCOUNTER → 2020-04-03 06:34 | Outpatient (CLI) | payer OTHER, SELFPAY ==
[2019-10-11 14:57] VITALS: BMI 33.7
[2020-04-03 07:03] LABS: Absolute Lymphocyte Count 2.12 X10^3/uL (0.83-4.51); Absolute Neutrophil Count 3.4 X10^3/uL (2.0-7.7); Basophil# 0.06 X10^3/uL; Eosinophil# 0.14 X10^3/uL; Eosinophils% 2.2 % (0-5); Hematocrit 41.6 % (37-47); Hemoglobin 13.8 g/dL (12.0-15.0); Lymphocyte # 2.12 X10^3/ul (4.0); Lymphocyte % 33.8 % (19-41); Mean Corp Hgb Conc 33.2 g/dL (32-36); Mean Corpuscular Hgb 31.1 pg (27.0-32.0); Mean Corpuscular Volume 93.7 fL (81-99); Mean Platelet Vol. 9.9 fl (6.2-12.0); NRBC Flagged by Analyzer 0 % (0-5); Neutrophil # 3.44 X10^3/uL (2.7-7.7); Neutrophil % 54.7 % (47-70); Platelet Count 259 K/mm3 (150-450); RBC Distribution Width CV 11.4 % (11.6-14.6); RBC Distribution Width SD 38.7 fl (35.1-43.9); Red Blood Count 4.44 M/mm3 (4.2-5.4); White Blood Count 6.3 K/mm3 (4.4-11.0)
[2020-04-03 07:32] LABS: AST(SGOT) 22 U/L (15-37); Alanine Aminotransfer ALT/SGPT 41 U/L (13-56); Albumin, Serum 3.5 g/dL (3.2-5.0); Alkaline Phosphatase 56 U/L (45-117); Anion Gap 5 (5-15); BUN 16 mg/dL (7-18); BUN/Creat Ratio 22.5 RATIO (10-20); Calcium,Total 8.4 mg/dL (8.5-10.1); Chloride 113 mmol/L (98-107); Creatinine, Serum 0.71 mg/dL (0.55-1.02); EST Glomerular Filtration Rate 93 mL/min (>60); Est Glom Filt Rate - Afr Amer 113 mL/min (>60); Globulin 3.5 g/dL (2.2-4.2); Glucose 105 mg/dL (74-106); LDH 171 U/L (84-246); Potassium 4.2 mmol/L (3.5-5.1); Sodium Level 141 mmol/L (136-145)
[2020-04-03 14:39] LABS: Xtra Tube EP Lab EXTRA TUBE
== END ==
PROVIDERS: PCP Internal Medicine; Referring Provider Internal Medicine Medical Oncology; Visit Provider Internal Medicine Medical Oncology
DX: C50.911 Malignant neoplasm of unspecified site of right female breast (principal)
CPT/HCPCS: 36415; 80053; 83615; 85025

== ENCOUNTER → 2020-10-10 15:51 | Outpatient (CLI) | payer OTHER, SELFPAY ==
[2019-10-11 14:57] VITALS: BMI 33.7
[2020-10-01 15:31] VITALS: BMI 34.4
--- NOTE | 2020-10-10 15:53 | BI_ITS ---
MAMMOGRAPHY - BILATERAL SCREENING 3-D TOMOSYNTHESIS REASON FOR EXAM: Female, 50 years old. SCREENING PERTINENT HISTORY: Personal history of breast cancer with prior right lumpectomy and radiation and chemotherapy. TECHNIQUE: 2-D mammograms and 3-D Tomosynthesis of the breast (s) were performed. CAD was performed. COMPARISON: 10/08/2019 FINDINGS: The breast composition is composed of scattered fibroglandular density. Scattered benign calcifications are seen. No dense spiculated masses or suspicious microcalcifications are identified. Stable architectural distortion in the right breast from previous surgery. Stable well-defined nodular density in the upper-outer quadrant of left breast.. There is no skin thickening or retraction. There has been no significant change since the prior study. BI/SCRN MAMM (CAD)W/MICHAEL BILAT IMPRESSION: No mammographic signs of malignancy. Routine yearly mammograms recommended. ASSESSMENT CATEGORY: BIRADS Category 2: Benign. A letter regarding these results will be sent to the patient by the facility within 30 days. FOLLOW UP RECOMMENDATION: Yearly follow up mammogram recommended. (A) Approximately 10% of breast cancers are not detected by mammography. A normal mammogram should not delay biopsy of a clinically suspicious abnormality. Electronically Signed: Luis Irene MD at 9:12 EDT , Service support ,
== END ==
PROVIDERS: PCP Internal Medicine
DX: Z12.31 Encounter for screening mammogram for malignant neoplasm of breast (principal)
CPT/HCPCS: 77063; 77067

== ENCOUNTER → 2020-10-21 09:25 | Outpatient (CLI) | payer OTHER, SELFPAY ==
[2020-10-01 15:31] VITALS: BMI 34.4
== END ==
PROVIDERS: PCP Internal Medicine; Referring Provider Surgery; Visit Provider Surgery
DX: Z03.818 Encounter for observation for suspected exposure to other biological agents ruled out (principal)
CPT/HCPCS: 87635; U0005; U0003

== ENCOUNTER → 2021-04-14 14:08 | Outpatient (CLI) | payer OTHER, SELFPAY ==
--- NOTE | 2021-04-14 14:15 | RAD_ITS ---
STUDY: X-RAY - PELVIS AND BILATERAL HIPS REASON FOR EXAM: Female, 50 years old. LEFT HIP PAIN -- NO TECHNIQUE: AP view of the pelvis.? 2 views of the right hip, and 2 views of the left hip were obtained. COMPARISON: None. FINDINGS: There is a non-specific bowel gas pattern. There is evidence of a tubal ligation clips in the pelvis. Normal bilateral iliac wings, sacroiliac joints and visualized sacrum. Normal bilateral superior and inferior pubic rami. Normal pubic symphysis. Normal bilateral ischial tuberosities. Normal visualized right femoral head. Normal right acetabulum. Normal right hip joint. Normal visualized left femoral head. Normal left acetabulum. Normal left hip joint. RAD/Hips B/L min 2 views w/ Pelvis IMPRESSION: Normal x-ray examination of the pelvis and bilateral hips. Electronically Signed: Enzo Espinosa MD at 15:13 EST , Service support ,
== END ==
PROVIDERS: PCP Internal Medicine; Referring Provider Internal Medicine Medical Oncology; Visit Provider Internal Medicine Medical Oncology
DX: M25.552 Pain in left hip (principal)
CPT/HCPCS: 73521

== ENCOUNTER → 2021-05-13 08:09 | Outpatient (CLI) | payer OTHER, SELFPAY ==
--- NOTE | 2021-05-13 08:11 | NM_ITS ---
CLINICAL: 50-year-old female with history of carcinoma of the breast. WHOLE BODY 99m Tc MDP RADIONUCLIDE BONE SCINTIGRAPHY COMPARISON: Previous whole body bone scintigraphy study dated 09/14/2017 FINDINGS: Following the intravenous administration of 26.0 mCi of 99m Tc MDP, whole body bone images reveal: 1. Increased radiopharmaceutical concentration is currently identified in the sternoclavicular compartments of both shoulders, right elbow, visualized right wrist, both knees, sacrum posteriorly, bilateral ankles, right-left midfoot, the first metatarsal-phalangeal articulation of the right forefoot. 2. The remaining skeletal structures are scintigraphically unremarkable with normal-appearing renal images and urinary bladder activity identified. Facilitated uptake is noted in the bilateral maxilla and interorbital aspect of the calvarium most consistent with periostitis. NM/Bone Scan Whole Body IMPRESSION: 1. The increase in radiopharmaceutical concentration identified in the bilateral shoulders, right elbow, right wrist, knees bilaterally, the sacrum, both ankles, right and left midfoot, the right forefoot is most consistent with degenerative arthritis. 2. Overall compared to the previous whole body bone scintigraphy study dated 09/14/2017, there is no significant interval change. No current typical scintigraphic evidence of diffuse axial skeletal metastatic disease is delineated on the current examination. Electronically Signed: Emilio Melendrez DO at 22:38 EST Tel , Service support ,
== END ==
PROVIDERS: PCP Internal Medicine; Referring Provider Nurse Practitioner Family; Visit Provider Nurse Practitioner Family
DX: M25.552 Pain in left hip (principal); Z85.3 Personal history of malignant neoplasm of breast
CPT/HCPCS: 78306; A9503

== ENCOUNTER → 2021-05-27 12:41 | Outpatient (CLI) | payer OTHER, SELFPAY ==
--- NOTE | 2021-05-27 12:43 | MRI_ITS ---
EXAM: MR PELVIS WITHOUT AND WITH INTRAVENOUS CONTRAST CLINICAL INDICATION: PAIN L HIP -- BILATERAL HIPS AND PELVIS breast cancer TECHNIQUE: Multiplanar and multisequence MR images of the pelvis without and with intravenous contrast. This report was created using [employer] report miCab technology. CONTRAST: IV 16ml Dotarem COMPARISON: None. FINDINGS: APPENDIX: No evidence of acute appendicitis. INTRAPERITONEAL SPACE: Unremarkable. No ascites or other fluid collection. BLADDER: Unremarkable. REPRODUCTIVE: The uterus is normal. BONES/JOINTS: Unremarkable. No suspicious lytic or blastic abnormality. SOFT TISSUES: There is an umbilical hernia containing fat. There is no bowel involvement. There is no incarceration. There is no findings suggesting that this is causing a bowel obstruction. LYMPH NODES: Unremarkable. No enlarged lymph nodes. MRI/Pelvis W/WO Contrast IMPRESSION: No acute findings in the pelvis. Electronically Signed: Noman Soler MD at 21:39 EST , Service support ,
== END ==
PROVIDERS: PCP Internal Medicine; Visit Provider Internal Medicine Medical Oncology
DX: M25.552 Pain in left hip (principal); Z85.3 Personal history of malignant neoplasm of breast
CPT/HCPCS: 72197; A9575

== ENCOUNTER → 2021-10-13 | Outpatient (CLI) | payer BC, SELFPAY ==
--- NOTE | 2021-10-13 13:20 | BI_ITS ---
MAMMOGRAPHY - BILATERAL SCREENING REASON FOR EXAM: Female, 51 years old. Routine annual screening examination. PERTINENT HISTORY: Personal history of breast cancer. Prior right lumpectomy with chemotherapy and radiation therapy. TECHNIQUE: Digital bilateral breast michael (3D mammographic acquisition) in the CC and MLO projections. 2-D mediolateral oblique (MLO) and craniocaudad (CC) views of both breasts were obtained. CAD: Full Field Digital Mammography with Computer Added Detection was performed. COMPARISON: Comparison is made with a prior examination dated 10/10/2020 and 10/08/2019. FINDINGS: Breast Composition: There are scattered areas of fibroglandular density. Stable 1.1 cm x 0.6 cm nodular density in the upper deep lateral portion of the left breast. The patient is status post lumpectomy with mild postresidual scarring in the deep central lateral aspect of the right breast. No other significant abnormalities are identified. There has been no significant change since the prior study. BI/SCRN MAMM (CAD)W/MICHAEL BILAT IMPRESSION: Stable bilateral screening mammogram. Yearly follow-up mammogram recommended. (A) ASSESSMENT CATEGORY: BIRADS Category 2: Benign. A letter regarding these results will be sent to the patient by the facility within 30 days. Approximately 10% of breast cancers are not detected by mammography. A normal mammogram should not delay biopsy of a clinically suspicious abnormality. [id number] Electronically Signed: Enzo Espinosa MD at 14:31 EDT ,
== END | disposition home or self-care (01) ==
PROVIDERS: PCP Internal Medicine; Visit Provider Internal Medicine Medical Oncology
DX: Z12.31 Encounter for screening mammogram for malignant neoplasm of breast (principal); Z85.3 Personal history of malignant neoplasm of breast
CPT/HCPCS: 77063; 77067

== ENCOUNTER → 2022-02-02 | Outpatient (CLI) | payer BC, SELFPAY ==
--- NOTE | 2022-02-02 10:27 | MRI_ITS ---
STUDY: BILATERAL BREAST MR WITHOUT AND WITH CONTRAST REASON FOR EXAM: Female, 51 years old. Right breast pain. TECHNIQUE: Multi-sequence multi-echo imaging of both breasts was performed with a dedicated breast coil. T1-weighted and T2-weighted images were performed before the administration of contrast. T1-weighted images were also performed after the intravenous administration of 15ml of Clariscan contrast without complications. COMPARISON: Mammograms dated 10/13/2021, 10/10/2020 and 10/08/2019. FINDINGS: RIGHT BREAST: The breast tissue is fatty with no background enhancement. There are no abnormal enhancing masses or areas of non-mass enhancement in the right breast. LEFT BREAST: The breast tissue is fatty with minimal background enhancement with largest focus being 5 mm in diameter. There are no abnormal enhancing masses or areas of non-mass enhancement in the left breast. There are no enlarged or abnormal lymph nodes. There is no abnormality in the visualized regions of the chest or liver. MRI/Breast Bilateral W/O and W IMPRESSION: No significant abnormality on the breast MRI with contrast. Yearly screening mammogram recommended. CATEGORY: BIRADS Category 2: Benign. A letter regarding these results will be sent to the patient by the facility within 30 days. Electronically Signed: Kuldeep Ribeiro, at 9:25 EDT ,
== END | disposition home or self-care (01) ==
LOC: MRI 10:27
PROVIDERS: PCP Internal Medicine; Visit Provider Surgery
DX: N64.4 Mastodynia (principal); Z85.3 Personal history of malignant neoplasm of breast
CPT/HCPCS: 77049; A9575; A4216; C8908

== ENCOUNTER 2022-02-05 05:28 | Day surgery (SDC) | payer BC, SELFPAY ==
[2022-02-05] MEDS: Lactated Ringers 1,000 ML 15 ML IV (05:40)
[2022-02-05 05:55] VITALS: BP 130/85; PULSE 80; RESP 20; TEMP 36.4; O2SAT 99; BMI 32.8
--- NOTE | 2022-02-05 06:28 | PCM.HP.STD ---
[facility] - General General Date of Admission: 02/05/22 Date of Service: 02/05/22 Chief Complaint: Screening colonoscopy HPI Narrative SARKIS ARREAGA, is a 51-year-old woman with past medical history of right-sided breast cancer stage I estrogen receptor positive on tamoxifen therapy who presents for screening colonoscopy. She does not have any abdominal pain. Not have any nausea. Have any chest pain or shortness of breath. Not have any numbness. Overall she is in good state of health. [facility] Medical History (Updated 02/04/22 @ 09:50 by Michelle Ortega) Alcohol use Arthritis Back pain Breast cancer History of lobular carcinoma of breast Non-smoker Osteoarthritis Other seborrheic keratosis Tubal Home Medications multivit-iron 18 mg-folic acid 400 mcg-calcium 500 mg-minerals tablet (Women's Daily Formula) 1 ea PO DAILY 12/31/15 [History Last Taken 03/29/17] tamoxifen 20 mg tablet 20 mg PO DAILY 02/04/22 [History Last Taken Unknown] Allergy/AdvReac Type Severity Reaction Status Date / Time No Known Allergies Allergy Verified 02/05/22 05:55 Family History Mother CVA (cerebral vascular accident) Kidney disease Hypertension Clotting disorder Skin cancer High cholesterol Father Skin cancer Arthritis High cholesterol Hypertension Brother Diabetes Kidney disease Surgical History (Updated 02/04/22 @ 09:50 by Michelle Ortega) History of dilation and curettage History of endometrial ablation History of excision of lesion History of excision of lesion History of hysteroscopy History of lumpectomy History of sinus surgery History of tubal ligation Social History Smoking Status: Never smoker alcohol intake: current details: SOCIAL substance use type: does not use additional social history: DOES NOT USE ASPIRIN DOES USE IBUPROFEN NEEDED ROS Review of Systems ROS Unobtainable: other Constitutional Constitutional: Denies fatigue, fever(s), poor appetite, weight gain or weight loss ENT HEENT: Denies mouth lesions Cardiovascular Cardiovascular: Denies abdominal bloating, abdominal edema or abdominal pain Respiratory/Chest Respiratory/Chest: Denies change in mental status, change in phlegm color, chest congestion or chest tightness Gastrointestinal Gastrointestinal: Denies belching, bloating, change in bowel habits, change in stool character, chewing difficulty, coffee ground emesis, constipation, cramping, diarrhea, dyspepsia, dysphagia, early satiety, excessive flatus, fecal incontinence, heartburn, hematemesis, hematochezia, hemorrhoids, loose stools, melena, nausea, odynophagia, rectal bleeding, tenesmus, vomiting or weight changes Genitourinary Genitourinary: Denies abdominal discomfort, burning urination or itching Musculoskeletal Musculoskeletal: Reports as per HPI; Denies muscle weakness or myalgias Integumentary Integumentary: Denies jaundice Neurologic Neurologic: Denies lack of coordination or weakness Psychiatric Psychiatric: Denies confusion, depression, memory loss, mood swings, paranoia or suicidal ideation Endocrine Endocrinology: Denies systems reviewed and no addt'l complaints, except as documented Hematologic/Lymphatic Hematologic/Lymphatic: Denies anemia, easy bleeding, easy bruising or lymphadenopathy Allergic/Immunologic Allergic/Immunologic: Denies systems reviewed and no addt'l complaints, except as documented Vital Signs Vital Signs Vital Signs: 02/05/22 05:55 02/05/22 05:55 Temperature 97.5 F L Temperature Source Temporal Pulse Rate 80 Respiratory Rate 20 H Respiratory Pattern Normal Blood Pressure 130/85 H Blood Pressure Mean 100 Blood Pressure Source Monitor Blood Pressure Position Semi-Fowlers Blood Pressure Location Left Arm Pulse Ox 99 Oxygen Delivery Method Room Air Weight Weight: 173 lb 15.115 oz Body Mass Index (BMI) 32.8 Physical Exam Const alert, oriented x3 and no apparent distress General Appearance: cooperative HEENT normocephalic, external ears normal and external nose normal Eyes PERRL, conjunctivae normal and no scleral icterus Neck supple Lymph Lymphatic: no lymphadenopathy noted Chest Chest Narrative: Breast deferred, to be done by her [facility]TER Resp normal respiratory effort and clear to auscultation bilaterally Cardio regular rate, regular rhythm, S1 normal heart sound and S2 normal heart sound GI normal to inspection, nondistended, normoactive bowel sounds Back/Spine no CVA tenderness and thoracic and lumbar spine normal to inspection Extremity normal to inspection Neuro oriented x3, CN's II-XII intact bilaterally, moves all extremities and no focal motor deficits Assessment & Plan Assessment/Plan (1) Encounter for screening for malignant neoplasm of colon: PLAN: She will undergo screening colonoscopy. She was explained alternatives, risk, benefits including not withstanding bleeding, infection, sepsis, perforation, need for urgent . She will have an ASA of 1.
[2022-02-05 06:55] VITALS: BP 106/68; BP 130/85; PULSE 73; RESP 18; TEMP 36.1; O2SAT 97
--- NOTE | 2022-02-05 06:55 | OP.COLON_ITS ---
Patient Name: Morenita Hutchins Procedure Date: 02/05/2022 6:15 AM Date of : 1970 Age: 51 Procedure: Colonoscopy Indications: Screening for colorectal malignant neoplasm Providers: Vikash Phillips DO Referring MD: Rich Morrison Medicines: Monitored Anesthesia Care Patient Profile: This is a 51 year old female. Refer to note in patient chart for documentation of history and physical. Last Colonoscopy: none. The patient's first colonoscopy is today. Complications: No immediate complications. Procedure: Pre-Anesthesia Assessment: - Prior to the procedure, a History and Physical was performed, and patient medications and allergies were reviewed. The risks and benefits of the procedure and the sedation options and risks were discussed with the patient. All questions were answered and informed consent was obtained. Patient identification and proposed procedure were verified by the physician in the pre-procedure area. Mental Status Examination: alert and oriented. Airway Examination: normal oropharyngeal airway and neck mobility. Respiratory Examination: clear to auscultation. CV Examination: normal. Prophylactic Antibiotics: The patient does not require prophylactic antibiotics. Prior Anticoagulants: The patient has taken no previous anticoagulant or antiplatelet agents. ASA Grade Assessment: II - A patient with mild systemic disease. After reviewing the risks and benefits, the patient was deemed in satisfactory condition to undergo the procedure. The anesthesia plan was to use monitored anesthesia care (MAC). Immediately prior to administration of medications, the patient was re-assessed for adequacy to receive sedatives. The heart rate, respiratory rate, oxygen saturations, blood pressure, adequacy of pulmonary ventilation, and response to care were monitored throughout the procedure. The physical status of the patient was re-assessed after the procedure. After I obtained informed consent, the scope was passed under direct vision. Throughout the procedure, the patient's blood pressure, pulse, and oxygen saturations were monitored continuously. The colonoscope was introduced through the anus and advanced to the cecum, identified by appendiceal orifice and ileocecal valve. The colonoscopy was performed without difficulty. The patient tolerated the procedure well. The quality of the bowel preparation was good. Scope In: 6:35:42 AM Scope Withdrawal Time 0 hours 10 minutes 55 seconds Scope Out: 6:49:05 AM Total Procedure Duration Time 0 hours 13 minutes 23 seconds Findings: Hemorrhoids were found on perianal exam. The entire examined colon appeared normal on direct and retroflexion views. Impression: - Hemorrhoids found on perianal exam. - The entire examined colon is normal on direct and retroflexion views. - No specimens collected. Recommendation: - Discharge patient to home. - Resume previous diet. - Continue present medications. - Repeat colonoscopy in 10 years for screening purposes. Procedure Code(s): --- Professional --- G0121, Colorectal cancer screening; colonoscopy on individual not meeting criteria for high risk CPT copyright 2017 [employer]. All rights reserved. The codes documented in this report are preliminary and upon distance learning coordinator review may be revised to meet current compliance requirements. Vikash Phillips DO 02/05/2022 6:54:35 AM This report has been signed electronically. Number of Addenda: 0 Note Initiated On: 02/05/2022 6:15 AM
--- NOTE | 2022-02-05 06:55 | OP.CCLET_ITS ---
02/05/2022 Rich Morrison Re : Colonoscopy procedure for Morenita Hutchins Dear Tamiko This procedure was performed on Saturday, February 05, 2022. My impressions and recommendations are as follows: Impressions : - Hemorrhoids found on perianal exam. - The entire examined colon is normal on direct and retroflexion views. - No specimens collected. Recommendations : - Discharge patient to home. - Resume previous diet. - Continue present medications. - Repeat colonoscopy in 10 years for screening purposes. My findings are described in the full procedure note, which is enclosed. If I can be of further assistance, please feel free to contact me at . Sincerely, Vikash Phillips, 02/05/2022 6:54:35 AM This report has been signed electronically.
[2022-02-05 07:00] VITALS: BP 130/85; BP 97/69; PULSE 70; RESP 16; O2SAT 97
[2022-02-05 07:05] VITALS: BP 109/72; BP 130/85; PULSE 69; RESP 16; O2SAT 99
[2022-02-05 07:10] VITALS: BP 106/73; BP 130/85; PULSE 65; RESP 18; TEMP 36.3; O2SAT 99
[2022-02-05 07:21] VITALS: BP 130/85
== END 2022-02-05 07:30 | disposition home or self-care (01) ==
LOC: EN 05:28 → AC 05:29
PROVIDERS: PCP Internal Medicine; Referring Provider Internal Medicine; Visit Provider Internal Medicine Gastroenterology
PROC: 0DJD8ZZ Inspection of Lower Intestinal Tract, Via Natural or Artificial Opening Endoscopic (ICD-10-PCS; CPT 45378; principal; 2022-02-05 06:25)
DX: Z12.11 Encounter for screening for malignant neoplasm of colon (principal); C50.911 Malignant neoplasm of unspecified site of right female breast; K64.9 Unspecified hemorrhoids; Z79.810 Long term (current) use of selective estrogen receptor modulators (SERMs)
CPT/HCPCS: 45378; J7120; J2405

== ENCOUNTER → 2022-04-14 | Outpatient (CLI) | payer BC, SELFPAY ==
[2022-04-14 07:08] LABS: Absolute Lymphocyte Count 2.31 X10^3/uL (0.83-4.51); Absolute Neutrophil Count 3.8 X10^3/uL (2.0-7.7); Basophil# 0.07 X10^3/uL; Eosinophil# 0.15 X10^3/uL; Eosinophils% 2.1 % (0-5); Hematocrit 40.8 % (37-47); Hemoglobin 13.5 g/dL (12.0-15.0); Lymphocyte # 2.31 X10^3/ul (0.83-4.51); Lymphocyte % 33.1 % (19-41); Mean Corp Hgb Conc 33.1 g/dL (32-36); Mean Corpuscular Hgb 30.8 pg (27.0-32.0); Mean Corpuscular Volume 92.9 fL (81-99); Mean Platelet Vol. 10.2 fl (6.2-12.0); Monocyte# 0.58 X10^3/uL; Monocyte% 8.3 % (0-10); NRBC Flagged by Analyzer 0 % (0-5); Neutrophil # 3.84 X10^3/uL (2.7-7.7); Neutrophil % 55.1 % (47-70); Platelet Count 262 K/mm3 (150-450); RBC Distribution Width CV 11.6 % (11.6-14.6); RBC Distribution Width SD 39.4 fl (35.1-43.9); Red Blood Count 4.39 M/mm3 (4.2-5.4)
[2022-04-14 07:43] LABS: ALB/GLOB Ratio 0.9 RATIO (0.9-2.4); AST(SGOT) 22 U/L (15-37); Alanine Aminotransfer ALT/SGPT 47 U/L (13-56); Albumin, Serum 3.4 g/dL (3.2-5.0); Alkaline Phosphatase 50 U/L (45-117); Anion Gap 7 (5-15); BUN 18 mg/dL (7-18); BUN/Creat Ratio 28.5 RATIO (10-20); Calcium,Total 8.6 mg/dL (8.5-10.1); Chloride 112 mmol/L (98-107); Creatinine, Serum 0.63 mg/dL (0.55-1.02); EST Glomerular Filtration Rate 106 mL/min (>60); Est Glom Filt Rate - Afr Amer 128 mL/min (>60); Globulin 3.6 g/dL (2.2-4.2); Glucose 104 mg/dL (74-106); LDH 177 U/L (84-246); Potassium 4.1 mmol/L (3.5-5.1); Sodium Level 141 mmol/L (136-145)
== END | disposition home or self-care (01) ==
LOC: LAB 06:05
PROVIDERS: PCP Internal Medicine; Referring Provider Internal Medicine Medical Oncology; Visit Provider Internal Medicine Medical Oncology
DX: Z85.3 Personal history of malignant neoplasm of breast (principal)
CPT/HCPCS: 36415; 80053; 83615; 85025

== ENCOUNTER → 2022-07-30 | Outpatient (CLI) | payer BC, SELFPAY ==
--- NOTE | 2022-07-30 17:19 | US_ITS ---
STUDY: ULTRASOUND TRANSVAGINAL CLINICAL: Female, 51 years old. POST COITAL BLEEDING TECHNIQUE: Transvaginal COMPARISON: 07/25/2018 FINDINGS: Normal uterine size measuring 8.5 x 5.1 x 4.1 cm in maximal craniocaudal dimension. Diffusely heterogeneous myometrium with a small posterior uterine body/fundal fibroid measuring 1.2 cm. Normal endometrial thickness measuring 2.0 mm. Mild amount of fluid within the endometrial complex with a focal polypoid structure measuring 2 mm best seen on image 48. Normal uterine cervix. Normal right ovary, measuring 2.2 x 1.4 x 1.1 cm. No solid or cystic mass. Normal left ovary, measuring 1.6 x 1.6 x 1.0 cm. No solid or cystic mass. There is no free fluid in the pelvis. US/Transvaginal Non- IMPRESSION: 1. Slight endometrial fluid with potential 2 mm endometrial polyp. 2. Uterine fibroid, small. Electronically Signed: Torin Pineda ([place]), at 10:58 EST Reading Location ID and State: [place] , Service support ,
== END | disposition home or self-care (01) ==
PROVIDERS: PCP Internal Medicine; Visit Provider Obstetrics & Gynecology
DX: O99.891 Other specified diseases and conditions complicating pregnancy (principal); N93.0 Postcoital and contact bleeding
CPT/HCPCS: 76830

== ENCOUNTER → 2022-11-05 | Outpatient (CLI) | payer BC, SELFPAY ==
--- NOTE | 2022-11-05 08:34 | BI_ITS ---
MAMMOGRAPHY - BILATERAL SCREENING REASON FOR EXAM: Female, 52 years old. Routine annual screening examination. PERTINENT HISTORY: Personal history of breast cancer. Prior lumpectomy with radiation and chemotherapy. TECHNIQUE: Digital bilateral breast michael (3D mammographic acquisition) in the CC and MLO projections. 2-D mediolateral oblique (MLO) and craniocaudad (CC) views of both breasts were obtained. CAD: Full Field Digital Mammography with Computer Added Detection was performed. COMPARISON: Comparison is made with prior study dated October 13, 2021 and October 10, 2020. FINDINGS: Breast Composition: There are scattered areas of fibroglandular density. 6.5 mm well-defined nodule in the deep upper lateral aspect of the left breast. The patient is status post lumpectomy in the slightly inferior the plantar aspect of the right breast with resultant postoperative scarring. No other significant abnormalities are identified. There has been no significant change since the prior study. BI/SCRN MAMM (CAD)W/MICHAEL BILAT IMPRESSION: Stable bilateral screening mammogram. Yearly follow-up mammogram recommended. (A) ASSESSMENT CATEGORY: BIRADS Category 2: Benign. A letter regarding these results will be sent to the patient by the facility within 30 days. Approximately 10% of breast cancers are not detected by mammography. A normal mammogram should not delay biopsy of a clinically suspicious abnormality. [id number] Electronically Signed: Enzo Espinosa MD at 9:29 EDT ,
== END | disposition home or self-care (01) ==
LOC: OPBI 08:33
PROVIDERS: PCP Internal Medicine; Visit Provider Internal Medicine Medical Oncology
DX: Z12.31 Encounter for screening mammogram for malignant neoplasm of breast (principal); Z85.3 Personal history of malignant neoplasm of breast; Z92.21 Personal history of antineoplastic chemotherapy; Z92.3 Personal history of irradiation
CPT/HCPCS: 77063; 77067

== ENCOUNTER 2022-12-01 06:18 | Outpatient (CLI) | payer BC, SELFPAY ==
[2022-12-01 07:35] LABS: Absolute Lymphocyte Count 3.33 X10^3/uL (0.83-4.51); Absolute Neutrophil Count 3.3 X10^3/uL (2.0-7.7); Basophil# 0.09 X10^3/uL; Basophil% 1.2 % (0-1); Eosinophil# 0.23 X10^3/uL; Hematocrit 42.1 % (37-47); Hemoglobin 13.7 g/dL (12.0-15.0); Lymphocyte # 3.33 X10^3/ul (0.83-4.51); Lymphocyte % 43.9 % (19-41); Mean Corp Hgb Conc 32.5 g/dL (32-36); Mean Corpuscular Hgb 30.6 pg (27.0-32.0); Mean Platelet Vol. 9.9 fl (6.2-12.0); Monocyte# 0.62 X10^3/uL; Monocyte% 8.2 % (0-10); NRBC Flagged by Analyzer 0 % (0-5); Neutrophil # 3.29 X10^3/uL (2.7-7.7); Neutrophil % 43.4 % (47-70); Platelet Count 288 K/mm3 (150-450); RBC Distribution Width CV 11.3 % (11.6-14.6); RBC Distribution Width SD 38.6 fl (35.1-43.9); Red Blood Count 4.48 M/mm3 (4.2-5.4); White Blood Count 7.6 K/mm3 (4.4-11.0)
[2022-12-01 08:04] LABS: ALB/GLOB Ratio 0.8 RATIO (0.9-2.4); AST(SGOT) 22 U/L (15-37); Alanine Aminotransfer ALT/SGPT 40 U/L (13-56); Albumin, Serum 3.3 g/dL (3.2-5.0); Alkaline Phosphatase 50 U/L (45-117); Anion Gap 3 (5-15); BUN 20 mg/dL (7-18); BUN/Creat Ratio 29.4 RATIO (10-20); Calcium,Total 8.4 mg/dL (8.5-10.1); Chloride 113 mmol/L (98-107); Creatinine, Serum 0.68 mg/dL (0.55-1.02); EST Glomerular Filtration Rate 97 mL/min (>60); Est Glom Filt Rate - Afr Amer 117 mL/min (>60); Globulin 3.9 g/dL (2.2-4.2); Glucose 103 mg/dL (74-106); LDH 160 U/L (84-246); Potassium 4.1 mmol/L (3.5-5.1); Protein, Total 7.2 g/dL (6.4-8.2); Sodium Level 139 mmol/L (136-145)
[2022-12-01 14:23] LABS: Xtra Tube EP Lab EXTRA TUBE
== END 2022-12-01 23:59 | disposition home or self-care (01) ==
LOC: LAB 06:20
PROVIDERS: PCP Internal Medicine; Referring Provider Internal Medicine Medical Oncology; Visit Provider Internal Medicine Medical Oncology
DX: C50.911 Malignant neoplasm of unspecified site of right female breast (principal); Z17.0 Estrogen receptor positive status [ER+]
CPT/HCPCS: 36415; 80053; 83615; 85025

== ENCOUNTER → 2023-06-20 | Outpatient (CLI) | payer BC, SELFPAY ==
[2023-06-20 10:56] LABS: Absolute Lymphocyte Count 2.61 X10^3/uL (0.83-4.51); Absolute Neutrophil Count 3.3 X10^3/uL (2.0-7.7); Basophil# 0.07 X10^3/uL; Eosinophil# 0.19 X10^3/uL; Eosinophils% 2.8 % (0-5); Hematocrit 40.5 % (37-47); Hemoglobin 13.6 g/dL (12.0-15.0); Lymphocyte # 2.61 X10^3/ul (0.83-4.51); Lymphocyte % 38.8 % (19-41); Mean Corp Hgb Conc 33.6 g/dL (32-36); Mean Corpuscular Hgb 30.6 pg (27.0-32.0); Mean Corpuscular Volume 91.2 fL (81-99); Mean Platelet Vol. 9.6 fl (6.2-12.0); Monocyte# 0.49 X10^3/uL; Monocyte% 7.3 % (0-10); NRBC Flagged by Analyzer 0 % (0-5); Neutrophil # 3.34 X10^3/uL (2.7-7.7); Neutrophil % 49.8 % (47-70); Platelet Count 262 K/mm3 (150-450); RBC Distribution Width CV 11.6 % (11.6-14.6); RBC Distribution Width SD 38.5 fl (35.1-43.9); Red Blood Count 4.44 M/mm3 (4.2-5.4); White Blood Count 6.7 K/mm3 (4.4-11.0)
[2023-06-20 11:40] LABS: AST(SGOT) 25 U/L (15-37); Alanine Aminotransfer ALT/SGPT 46 U/L (13-56); Albumin, Serum 3.4 g/dL (3.2-5.0); Alkaline Phosphatase 49 U/L (45-117); Anion Gap 7 (5-15); BUN 15 mg/dL (7-18); BUN/Creat Ratio 23.7 RATIO (10-20); Calcium,Total 8.7 mg/dL (8.5-10.1); Chloride 110 mmol/L (98-107); Creatinine, Serum 0.63 mg/dL (0.55-1.02); EST Glomerular Filtration Rate 105 mL/min (>60); Est Glom Filt Rate - Afr Amer 127 mL/min (>60); Globulin 3.3 g/dL (2.2-4.2); Glucose 95 mg/dL (74-106); LDH 161 U/L (84-246); Potassium 4.2 mmol/L (3.5-5.1); Protein, Total 6.7 g/dL (6.4-8.2); Sodium Level 140 mmol/L (136-145)
== END | disposition home or self-care (01) ==
LOC: LAB 10:23
PROVIDERS: PCP Internal Medicine; Referring Provider Internal Medicine Medical Oncology; Visit Provider Internal Medicine Medical Oncology
DX: Z85.3 Personal history of malignant neoplasm of breast (principal)
CPT/HCPCS: 36415; 80053; 83615; 85025

== ENCOUNTER → 2023-09-13 | Outpatient (CLI) | payer BC, SELFPAY ==
--- NOTE | 2023-09-13 15:02 | BI_ITS ---
MAMMOGRAPHY - BILATERAL DIAGNOSTIC REASON FOR EXAM: Female, 53 years old. Patient diffuse enlargement of the left breast. PERTINENT HISTORY: Personal history of breast cancer. Prior right lumpectomy with chemotherapy and radiation therapy. TECHNIQUE: Digital bilateral breast petar (3D mammographic acquisition) in the CC and MLO projections. 2-D mediolateral oblique (MLO) and craniocaudad (CC) views of both breasts were obtained. CAD: Full Field Digital Mammography with Computer Added Detection was performed. COMPARISON: Comparison is made with prior study dated November 05, 2022 and October 13, 2021. FINDINGS: Breast Composition: The breasts are almost entirely fatty. There are no dominant masses or suspicious calcifications. Stable 6.5 mm well-defined nodule in the deep upper lateral aspect of the left breast. Once again, the patient is status post lumpectomy in the deep slightly inferior aspect of the right breast. No other significant abnormalities are identified. There has been no significant change since the prior study. BI/DIAG MAMM W/CAD, BILAT IMPRESSION: Stable bilateral diagnostic mammogram. One year follow-up recommended. (A) ASSESSMENT CATEGORY: BIRADS Category 2: Benign. A letter regarding these results will be sent to the patient by the facility within 30 days. Approximately 10% of breast cancers are not detected by mammography. A normal mammogram should not delay biopsy of a clinically suspicious abnormality. Electronically Signed: Enzo Espinosa MD at 8:46 EDT ,
--- NOTE | 2023-09-13 15:29 | US_ITS ---
STUDY: ULTRASOUND BREAST - LEFT REASON FOR EXAM: Female, 53 years old. Fullness of the left breast. TECHNIQUE: Axial and longitudinal images of the LEFT breast were performed with a high resolution ultrasound transducer. # OF IMAGES: 77 COMPARISON: Comparison is made with prior mammogram dated September 13, 2023 and prior sonogram of the left breast dated September 25, 2018. FINDINGS: LEFT Breast: The upper lateral aspect of the left breast was examined with ultrasound. There is a 7 mm x 4 mm x 3 mm well-defined hypoechoic nodule at the 2:00 position of the breast at 3 cm from nipple. This is unchanged. This most likely represents a fibroadenoma. US/Breast Limited Unilateral IMPRESSION: Stable 7 mm x 4 mm x 3 mm hypoechoic nodule at the 2:00 position of the breast at 3 cm from the nipple. ASSESSMENT CATEGORY: BIRADS Category 2: Benign. A letter regarding these results will be sent to the patient by the facility within 30 days. Electronically Signed: Enzo Espinosa MD at 11:02 EDT ,
== END | disposition home or self-care (01) ==
LOC: OPBI 14:44
PROVIDERS: PCP Internal Medicine; Referring Provider Nurse Practitioner Family; Visit Provider Nurse Practitioner Family
DX: Z12.31 Encounter for screening mammogram for malignant neoplasm of breast (principal); R92.30 Dense breasts, unspecified; Z85.3 Personal history of malignant neoplasm of breast; R92.8 Other abnormal and inconclusive findings on diagnostic imaging of breast
CPT/HCPCS: 76642; 77062; 77063; 77066; G0279

== ENCOUNTER → 2023-10-19 | Outpatient (CLI) | payer BC, SELFPAY ==
--- NOTE | 2023-10-19 15:04 | CT_ITS ---
INDICATION: Left breast enlargement, hx of left lung nodule -- Left axillary adenopathy EXAMINATION: CT CHEST WITH CONTRAST - CT Chest W/ Contrast Injection TECHNIQUE: Helically acquired images were obtained of the chest following IV contrast. A radiation dose optimization technique was used for this scan. IV Contrast dosage and agent: COMPARISON: None. FINDINGS: LUNGS, PLEURA AND LARGE AIRWAYS: Normal lung volumes. There is a 6 mm noncalcified nodule of the posterior left lower lobe. Recommend correlation with any prior studies which were not provided at this time. If no prior studies are available, then follow-up for total of 2 years is necessary. No masses, no infiltrates, consolidation, or edema. No pleural effusion or thickening. No pneumothorax. THYROID: No thyroid lesions. HEART AND PERICARDIUM: Heart size is normal. No pericardial effusion. VESSELS: Thoracic aorta is not dilated. No aortic dissection. No obvious central pulmonary embolism although this study was not performed with the pulmonary embolism protocol. MEDIASTINUM AND ADA: No mediastinal or hilar adenopathy. Esophagus is unremarkable. No hiatal hernia. UPPER ABDOMEN: No acute pathology. BONES: No suspicious lytic or blastic abnormality. CT/Chest WITH Contrast IMPRESSION: No definite acute chest disease. 6 mm noncalcified left lower lobe nodule-see recommendations above. Electronically Signed: Pato Sadler MD at 22:54 EDT ,
== END | disposition home or self-care (01) ==
LOC: CT 15:03
PROVIDERS: PCP Internal Medicine; Referring Provider Surgery; Visit Provider Surgery
DX: R91.1 Solitary pulmonary nodule (principal)
CPT/HCPCS: 71260; Q9967

== ENCOUNTER → 2024-06-25 | Outpatient (CLI) | payer BC, SELFPAY ==
[2024-06-25 07:53] LABS: Absolute Lymphocyte Count 1.66 X10^3/uL (0.83-4.51); Absolute Neutrophil Count 1.6 X10^3/uL (2.0-7.7); Basophil# 0.04 X10^3/uL; Eosinophil# 0.15 X10^3/uL; Eosinophils% 3.6 % (0-5); Hemoglobin 13.6 g/dL (12.0-15.0); Lymphocyte # 1.66 X10^3/ul (0.83-4.51); Lymphocyte % 40.3 % (19-41); Mean Corpuscular Hgb 31.4 pg (27.0-32.0); Mean Corpuscular Volume 92.4 fL (81-99); Mean Platelet Vol. 9.6 fl (6.2-12.0); Monocyte# 0.69 X10^3/uL; Monocyte% 16.7 % (0-10); NRBC Flagged by Analyzer 0 % (0-5); Neutrophil # 1.57 X10^3/uL (2.7-7.7); Neutrophil % 38.2 % (47-70); Platelet Count 226 K/mm3 (150-450); RBC Distribution Width CV 11.8 % (11.6-14.6); RBC Distribution Width SD 39.8 fl (35.1-43.9); Red Blood Count 4.33 M/mm3 (4.2-5.4); White Blood Count 4.1 K/mm3 (4.4-11.0)
[2024-06-25 09:19] LABS: ALB/GLOB Ratio 0.8 RATIO (0.9-2.4); AST(SGOT) 30 U/L (15-37); Alanine Aminotransfer ALT/SGPT 54 U/L (13-56); Albumin, Serum 3.2 g/dL (3.2-5.0); Alkaline Phosphatase 48 U/L (45-117); Anion Gap 6 (5-15); BUN 13 mg/dL (7-18); Calcium,Total 8.5 mg/dL (8.5-10.1); Chloride 111 mmol/L (98-107); Creatinine, Serum 0.72 mg/dL (0.55-1.02); EST Glomerular Filtration Rate 90 mL/min (>60); Est Glom Filt Rate - Afr Amer 109 mL/min (>60); Globulin 3.8 g/dL (2.2-4.2); Glucose 110 mg/dL (74-106); LDH 157 U/L (84-246); Potassium 4.1 mmol/L (3.5-5.1); Sodium Level 139 mmol/L (136-145)
== END | disposition home or self-care (01) ==
LOC: LAB 07:27
PROVIDERS: PCP Internal Medicine; Referring Provider Internal Medicine Medical Oncology; Visit Provider Internal Medicine Medical Oncology
DX: Z85.3 Personal history of malignant neoplasm of breast (principal)
CPT/HCPCS: 36415; 80053; 83615; 85025

== ENCOUNTER → 2024-07-03 | Outpatient (CLI) | payer BC, SELFPAY ==
--- NOTE | 2024-07-03 07:48 | NM_ITS ---
PROCEDURE: BONE SCAN WHOLE BODY REASON FOR EXAM: RIGHT HIP PAIN. HISTORY OF BREAST CANCER. TECHNIQUE: Whole-body bone scan with anterior and posterior views.. RADIOPHARMACEUTICAL: 27.4 mCi Technetium-99m MDP IV COMPARISON: CORRELATION WITH EXISTING RELEVANT IMAGING STUDIES (i.e. x-ray, MRI, CT, etc.): RECENT CHEST CT DATED 10/19/2023. FINDINGS: Bones: There is good uptake of the radiopharmaceutical. No suspicious foci of activity are identified. Increased accumulation of the radionuclide in the right knee. Mild dextrocurvature of the thoracic spine. Kidneys: Normal activity is identified at both kidneys. NM/Bone Scan Whole Body IMPRESSION: NO SCINTIGRAPHIC EVIDENCE OF METASTATIC DISEASE TO BONE. SUSPICION OF DEGENERATIVE OSTEOARTHRITIS, RIGHT KNEE. Reading Location: [facility]
== END | disposition home or self-care (01) ==
LOC: NM 07:48
PROVIDERS: PCP Internal Medicine; Referring Provider Nurse Practitioner Family; Visit Provider Nurse Practitioner Family
DX: M25.551 Pain in right hip (principal); Z85.3 Personal history of malignant neoplasm of breast
CPT/HCPCS: 78306; A9503

== ENCOUNTER → 2024-08-15 | Outpatient (CLI) | payer BC, SELFPAY ==
[2024-08-15 06:37] LABS: Absolute Lymphocyte Count 2.86 X10^3/uL (0.83-4.51); Absolute Neutrophil Count 4.1 X10^3/uL (2.0-7.7); Basophil# 0.07 X10^3/uL; Basophil% 0.9 % (0-1); Eosinophil# 0.24 X10^3/uL; Hematocrit 38.3 % (37-47); Hemoglobin 13.2 g/dL (12.0-15.0); Lymphocyte # 2.86 X10^3/ul (0.83-4.51); Lymphocyte % 36.1 % (19-41); Mean Corp Hgb Conc 34.5 g/dL (32-36); Mean Corpuscular Hgb 31.7 pg (27.0-32.0); Mean Corpuscular Volume 92.1 fL (81-99); Mean Platelet Vol. 9.1 fl (6.2-12.0); Monocyte% 7.6 % (0-10); NRBC Flagged by Analyzer 0 % (0-5); Neutrophil # 4.14 X10^3/uL (2.7-7.7); Neutrophil % 52.1 % (47-70); Platelet Count 292 K/mm3 (150-450); RBC Distribution Width CV 11.7 % (11.6-14.6); RBC Distribution Width SD 39.3 fl (35.1-43.9); Red Blood Count 4.16 M/mm3 (4.2-5.4); White Blood Count 7.9 K/mm3 (4.4-11.0)
== END | disposition home or self-care (01) ==
LOC: LAB 06:26
PROVIDERS: PCP Internal Medicine; Referring Provider Nurse Practitioner Family; Visit Provider Nurse Practitioner Family
DX: D70.9 Neutropenia, unspecified (principal)
CPT/HCPCS: 36415; 85025

== ENCOUNTER → 2024-12-17 | Outpatient (CLI) | payer BC, SELFPAY ==
--- NOTE | 2024-12-17 17:03 | CT_ITS ---
PROCEDURE: CHEST WITH CONTRAST 12/17/2024 REASON FOR EXAM: RIGHT CHEST WALL MASS TECHNIQUE: Axial chest CT with intravenous contrast. Coronal and Sagittal reconstruction series were provided. CONTRAST: Isovue 370 VOLUME: 100 mL One or more dose reduction techniques were used (e.g., Automated exposure control, adjustment of the mA and/or kV according to patient size, use of iterative reconstruction technique). RADIATION DOSE SUMMARY: DLP: 500 mGycm COMPARISON: CT chest 10/19/2023. FINDINGS: Hardware: None. Lymph nodes: No axillary, mediastinal or hilar lymphadenopathy. Heart and Vasculature: The heart is normal in size without pericardial effusion. The great vessels are normal in caliber. Mild calcific plaque of the thoracic aorta. Lungs and Airways: The central airways are patent. No significant change in size of the rounded left lower lobe pulmonary nodule measuring 0.7 cm (series 2, image 71), previously 0.6 cm. No new pulmonary nodule. No pleural effusion or pneumothorax. Upper Abdomen: Hepatic steatosis. Bones/soft tissues: Surgical clips within the right breast, compatible with reported postsurgical changes. Cervical and thoracic degenerative spondylosis. No aggressive osseous lesions. CT/Chest WITH Contrast IMPRESSION: 1. Stable left lower lobe pulmonary nodule. Continued if additional follow-up imaging recommended. 2. Hepatic steatosis. Reading Location: [id number]
== END | disposition home or self-care (01) ==
LOC: CT 16:58
PROVIDERS: PCP Internal Medicine; Referring Provider Internal Medicine; Visit Provider Internal Medicine
DX: R22.2 Localized swelling, mass and lump, trunk (principal)
CPT/HCPCS: 71260; Q9967